=== PATIENT | male | born 1960 | race Caucasian/White ===

== ENCOUNTER → 2021-06-25 | Outpatient (CLI) | payer BC ==
[2021-06-26 08:14] LABS: RHEUMATOID ARTHRITIS FACTOR <10.0 IU/mL (0.0-13.9)
[2021-06-26 16:15] LABS: ANTI-CENTROMERE B ANTIBODIES <0.2 AI (0.0-0.9); ANTISCLERODERMA-70 ANTIBODIES <0.2 AI (0.0-0.9); RNP ANTIBODIES 0.3 AI (0.0-0.9); SJOGREN'S ANTI-SS-A 0.2 AI (0.0-0.9); SJOGREN'S ANTI-SS-B <0.2 AI (0.0-0.9); SMITH ANTIBODIES <0.2 AI (0.0-0.9)
[2021-06-27 12:11] LABS: ANTIHISTONE ANTIBODIES 0.7 Units (0.0-0.9)
== END ==
LOC: LAB 11:43
PROVIDERS: Nurse Practitioner Family
DX: M25.50 Pain in unspecified joint (principal); R76.8 Other specified abnormal immunological findings in serum
CPT/HCPCS: 36415; 83520; 85652; 86038; 86140; 86200; 86235; 86431